=== PATIENT | male | born 1985 | race Caucasian/White ===

== ENCOUNTER 2017-11-25 20:34 | Inpatient (IN) | payer MEDICAID, OTHER ==
[~2017-11-25] VITALS: Ht 180.3 cm; Wt 87.8 kg
[2017-11-25] MEDS ORDERED: albuterol 2.5 MG/3 ML nebule CONTNEB PRN (21:10)
[2017-11-25 21:31] LABS: BASOPHILS % (AUTO) 0 % (0-1); EOSINOPHILS % (AUTO) 0.1 % (0-6); HEMATOCRIT 51.8 % (42.0-52.0); LYMPHOCYTES # (AUTO) 1.2 X10'3 (1.1-4.8); LYMPHOCYTES % (AUTO) 4.3 % (21-51); MEAN CORPUSCULAR HEMOGLOBIN 30.1 PG (27.0-31.0); MEAN CORPUSCULAR HGB CONC 34.8 % (33.0-36.5); MEAN CORPUSCULAR VOLUME 86.6 FL (78-98); MEAN PLATELET VOLUME 7.3 FL (7.4-10.4); MONOCYTES % (AUTO) 3.5 % (2-12); NEUTROPHILS # (AUTO) 25.5 X10'3 (1.8-7.7); NEUTROPHILS % (AUTO) 92.1 % (42-75); PLATELET COUNT 314 X10'3 (140-440); RED BLOOD COUNT 5.99 X10'6 (4.70-6.10); RED CELL DISTRIBUTION WIDTH 13.3 % (11.5-14.5)
[2017-11-25 21:34] LABS: WHITE BLOOD COUNT 27.7 X10'3 (4.5-11.0)
[2017-11-25] MEDS ORDERED: levoFLOXACIN-Levaquin 750MG/D5 150 ML IV STA (21:37)
[2017-11-25 21:45] LABS: PARTIAL THROMBOPLASTIN TIME 25 SECONDS (22-32); PROTHROMBIN TIME 10.1 SECONDS (9.0-12.0)
[2017-11-25 21:48] LABS: ALANINE AMINOTRANSFERASE 38 U/L (12-78); ALKALINE PHOSPHATASE 113 IU/L (46-116); ANION GAP 6 (8-16); ASPARTATE AMINO TRANSFERASE 30 U/L (10-37); BILIRUBIN,TOTAL 1.7 MG/DL (0.1-1.0); BLOOD UREA NITROGEN 16 MG/DL (7-18); BUN/CREATININE RATIO 12.8 (5.4-32.0); CALCIUM 9.2 MG/DL (8.5-10.1); CHLORIDE 101 MMOL/L (99-107); CREATININE 1.25 MG/DL (0.60-1.10); GLUCOSE 132 MG/DL (70-104); POTASSIUM 4.1 MMOL/L (3.5-5.1); SODIUM 135 MMOL/L (135-145); TOTAL CARBON DIOXIDE 28.2 MMOL/L (24-32); eGFR 67 ML/MIN
[2017-11-25 21:55] LABS: ABG HCO3 23.4 mmol/L (22.0-26.0); ABG OXYGEN SATURATION 92.8 % (95-98); ABG PCO2 (T) 37.3 mmHg (35.0-48.0); ABG PH (T) 7.413 (7.350-7.450); ABG PO2 (T) 63.6 mmHg (83-108); ALLEN'S TEST Positive; FCOHb 1.4 % (0.5-1.5); FLOW 2 L/min; FMetHb 0.3 % (0.3-1.12); FO2Hb 91.2 % (94-100); PATIENT TEMPERATURE 36.4; RESPIRATORY RATE (OBSERVED) 18 b/min; TOTAL HEMOGLOBIN 17.5 G/dl (14.0-18.0)
[2017-11-25 21:56] LABS: CREATINE KINASE 455 U/L (39-308); ETHANOL < 0.010 GM/DL (0.0-0.010); MAGNESIUM 2.1 MG/DL (1.5-2.4)
[2017-11-25 22:00] LABS: BANDS% (MANUAL) 4 % (0-10); LYMPHOCYTES % (MANUAL) 5 % (21-51); MONOCYTES % (MANUAL) 4 % (2-12); NEUTROPHILS % (MANUAL) 87 % (42-75); PLATELET ESTIMATE NORMAL; TOTAL CELLS COUNTED 100
[2017-11-25] MEDS ORDERED: acetaminophen 325mg tablet PO PRN (23:40)
[2017-11-25] MEDS ORDERED: ondansetron/PF 4mg/2ml inj IV PRN (23:40)
[2017-11-25] MEDS ORDERED: mag hydrox/Alum hydrox/simeth 30ml oral suspension PO PRN (23:40)
[2017-11-25] MEDS ORDERED: magnesium hydroxide 30ml (MOM) UD suspension PO PRN (23:40)
[2017-11-26 00:55] VITALS: BP 123/77
[2017-11-26 05:31] LABS: BASOPHILS % (AUTO) 0.1 % (0-1); EOSINOPHILS # (AUTO) 0.2 X10'3 (0-0.9); HEMATOCRIT 44.4 % (42.0-52.0); HEMOGLOBIN 15.5 g/dl (14.0-17.9); LYMPHOCYTES # (AUTO) 2.9 X10'3 (1.1-4.8); LYMPHOCYTES % (AUTO) 16.6 % (21-51); MEAN CORPUSCULAR HEMOGLOBIN 30.2 PG (27.0-31.0); MEAN CORPUSCULAR VOLUME 86.4 FL (78-98); MEAN PLATELET VOLUME 7.4 FL (7.4-10.4); MONOCYTES # (AUTO) 1.2 X10'3 (0-0.9); MONOCYTES % (AUTO) 6.6 % (2-12); NEUTROPHILS # (AUTO) 13.3 X10'3 (1.8-7.7); NEUTROPHILS % (AUTO) 75.7 % (42-75); PLATELET COUNT 280 X10'3 (140-440); RED BLOOD COUNT 5.14 X10'6 (4.70-6.10); WHITE BLOOD COUNT 17.6 X10'3 (4.5-11.0)
[2017-11-26 05:52] LABS: ALANINE AMINOTRANSFERASE 32 U/L (12-78); ALBUMIN 3.1 G/DL (3.4-5.0); ALBUMIN/GLOBULIN RATIO 0.9 (1.1-1.5); ALKALINE PHOSPHATASE 88 IU/L (46-116); ANION GAP 7 (8-16); ASPARTATE AMINO TRANSFERASE 21 U/L (10-37); BILIRUBIN,TOTAL 1.2 MG/DL (0.1-1.0); BLOOD UREA NITROGEN 17 MG/DL (7-18); BUN/CREATININE RATIO 15.2 (5.4-32.0); CALCIUM 8.3 MG/DL (8.5-10.1); CHLORIDE 102 MMOL/L (99-107); CREATININE 1.12 MG/DL (0.60-1.10); GLUCOSE 111 MG/DL (70-104); POTASSIUM 3.6 MMOL/L (3.5-5.1); SODIUM 136 MMOL/L (135-145); TOTAL CARBON DIOXIDE 26.8 MMOL/L (24-32); TOTAL PROTEIN 6.7 G/DL (6.4-8.2); eGFR 76 ML/MIN
[2017-11-26 07:09] VITALS: BP 112/64
[2017-11-26] MEDS ORDERED: levoFLOXACIN 250mg tablet PO SCH (08:00)
[2017-11-26] MEDS: levoFLOXACIN 250mg tablet PO SCH (11:49)
[2017-11-26 11:52] VITALS: BP 121/62
[2017-11-26] MEDS ORDERED: NO HOME MEDS (12:25)
[2017-11-26] MEDS: acetaminophen 325mg tablet PO PRN ×2 (13:17→19:39)
[2017-11-26 19:30] VITALS: BP 120/67
[2017-11-26] MEDS: lactobacillus rhamnosus 10,000 MMU CELLS/CAPSULE PO SCH (19:39)
[2017-11-26] MEDS: metroNIDAZOLE 500mg tablet PO SCH (19:39)
[2017-11-26] MEDS: albuterol 2.5 MG/3 ML nebule NEB SCH ×2 (20:00→23:24)
[2017-11-26] MEDS ORDERED: ketorolac trometh. 30mg/ml inj. IV PRN (21:50)
[2017-11-26] MEDS ORDERED: ibuprofen tablet 400 MG TABLET PO PRN ×2 (21:50→22:35)
[2017-11-26] MEDS: pantoprazole 40mg Tablet.DR PO SCH ×2 (23:09→23:10)
[2017-11-26 23:42] LABS: CLARITY,URINE CLEAR (Clear); COLOR,URINE YELLOW (Yellow); GLUCOSE, URINE NEGATIVE (Neg); KETONES,URINE NEGATIVE (Neg); LEUKOCYTE ESTERASE ,URINE TRACE (Neg); NITRITES, URINE NEGATIVE (Neg); OCCULT BLOOD,URINE NEGATIVE (Neg); PROTEIN,URINE NEGATIVE (Neg); UROBILINOGEN,URINE 0.2 E.U/dL (0.2-1.0)
[2017-11-26 23:50] LABS: URINE AMPHETAMINE SCREEN POSITIVE (Neg); URINE BARBITUATE SCREEN NEGATIVE (Neg); URINE BENZODIAZEPINES SCREEN NEGATIVE (Neg); URINE CANNABINOID SCREEN NEGATIVE (Neg); URINE COCAINE SCREEN NEGATIVE (Neg); URINE METHADONE SCREEN NEGATIVE (Neg); URINE OPIATE SCREEN POSITIVE (Neg); URINE PHENCYCLIDINE SCREEN NEGATIVE (Neg)
[2017-11-26 23:52] LABS: UA COLLECTION TYPE CLN CATCH MIDSTREAM
[2017-11-26 23:53] LABS: RBC,URINE NONE SEEN /HPF (0-2); WBC,URINE 20-30 /HPF (0-4)
[2017-11-26 23:54] LABS: BACTERIA,URINE NONE SEEN /HPF (Neg); MUCUS STRANDS MODERATE /LPF (Neg); SQUAMOUS EPITHELIAL CELL,UR NONE SEEN /LPF (FEW)
[2017-11-27] VITALS: BP 126/75
[2017-11-27] MEDS: albuterol 2.5 MG/3 ML nebule NEB SCH ×3 (03:00→11:30)
[2017-11-27 05:21] LABS: BASOPHILS % (AUTO) 0.3 % (0-1); EOSINOPHILS # (AUTO) 0.5 X10'3 (0-0.9); EOSINOPHILS % (AUTO) 3.4 % (0-6); HEMATOCRIT 42.9 % (42.0-52.0); HEMOGLOBIN 14.9 g/dl (14.0-17.9); LYMPHOCYTES # (AUTO) 2.9 X10'3 (1.1-4.8); LYMPHOCYTES % (AUTO) 20.8 % (21-51); MEAN CORPUSCULAR HEMOGLOBIN 30.1 PG (27.0-31.0); MEAN CORPUSCULAR HGB CONC 34.7 % (33.0-36.5); MEAN CORPUSCULAR VOLUME 86.6 FL (78-98); MEAN PLATELET VOLUME 7.2 FL (7.4-10.4); NEUTROPHILS # (AUTO) 9.5 X10'3 (1.8-7.7); NEUTROPHILS % (AUTO) 68.5 % (42-75); PLATELET COUNT 237 X10'3 (140-440); RED BLOOD COUNT 4.95 X10'6 (4.70-6.10); RED CELL DISTRIBUTION WIDTH 13.4 % (11.5-14.5); WHITE BLOOD COUNT 13.9 X10'3 (4.5-11.0)
[2017-11-27 05:36] LABS: ALANINE AMINOTRANSFERASE 20 U/L (12-78); ALBUMIN 2.9 G/DL (3.4-5.0); ALBUMIN/GLOBULIN RATIO 0.8 (1.1-1.5); ALKALINE PHOSPHATASE 81 IU/L (46-116); ANION GAP 6 (8-16); ASPARTATE AMINO TRANSFERASE 15 U/L (10-37); BILIRUBIN,TOTAL 0.7 MG/DL (0.1-1.0); BLOOD UREA NITROGEN 13 MG/DL (7-18); BUN/CREATININE RATIO 13.5 (5.4-32.0); CALCIUM 8.1 MG/DL (8.5-10.1); CHLORIDE 103 MMOL/L (99-107); CREATININE 0.96 MG/DL (0.60-1.10); GLUCOSE 99 MG/DL (70-104); POTASSIUM 3.7 MMOL/L (3.5-5.1); SODIUM 137 MMOL/L (135-145); TOTAL CARBON DIOXIDE 27.8 MMOL/L (24-32); TOTAL PROTEIN 6.5 G/DL (6.4-8.2); eGFR 90 ML/MIN
[2017-11-27 07:54] VITALS: BP 113/69
[2017-11-27] MEDS: lactobacillus rhamnosus 10,000 MMU CELLS/CAPSULE PO SCH (09:50)
[2017-11-27] MEDS: metroNIDAZOLE 500mg tablet PO SCH (09:50)
[2017-11-27] MEDS ORDERED: LEVO250T58 PO (10:42)
[2017-11-27] MEDS ORDERED: METR500T4 PO (10:42)
[2017-11-27] MEDS ORDERED: LEVO500T2 PO (10:49)
[2017-11-27 11:19] VITALS: BP 135/73
[2017-11-27] MEDS: levoFLOXACIN 250mg tablet PO SCH (11:38)
[2017-12-02] MEDS ORDERED: ibuprofen tablet 400 MG TABLET PO PRN (08:00)
== END 2017-11-27 13:14 | disposition home or self-care (01) | DRG 816 ==
LOC: ER 20:35 → ED HOLD 23:36 → SUR 3N 23:59
PROVIDERS: ADMIT Internal Medicine; ATTEND Internal Medicine
DX: T52.8X1A Toxic effect of other organic solvents, accidental (unintentional), initial encounter (principal); J96.01 Acute respiratory failure with hypoxia; J69.0 Pneumonitis due to inhalation of food and vomit; T75.1XXA Unspecified effects of drowning and nonfatal submersion, initial encounter; I10 Essential (primary) hypertension; R55 Syncope and collapse; W16.111A Fall into natural body of water striking water surface causing drowning and submersion, initial encounter; N39.0 Urinary tract infection, site not specified; Y93.89 Activity, other specified; Y92.828 Other wilderness area as the place of occurrence of the external cause; Y99.8 Other external cause status; Z71.51 Drug abuse counseling and surveillance of drug abuser
CPT/HCPCS: 36415; 36600; 71045; 71046; 80053; 80305; 80320; 81001; 82550; 82803; 83605; 83735; 83880; 84484; 85018; 85025; 85610; 85730; 87040; 87070; 87088; 93005; 94640; 94760; 99285; J1956; J3490

== ENCOUNTER 2020-05-09 15:46 | Emergency (ER) | payer MEDICAID, OTHER ==
[~2020-05-09] VITALS: Ht 180.3 cm; Wt 73.0 kg
[~2020-05-09 15:46] MED LIST: LIDOcaine 1% W/epiNEPHrine 1:100,000 20ml vial ONE; METR-159 PO
[2020-05-09] MEDS ORDERED: HYDROcodone/acetaminophen 5mg/325mg tablet PO ONE (16:50)
[2020-05-09] MEDS ORDERED: CefTRIAXone 250MG inj IM ONE (17:05)
[2020-05-09] MEDS ORDERED: CefTRIAXone 250MG IM Kit w/LIDOcaine IM ONE (17:10)
[2020-05-09] MEDS ORDERED: LIDOcaine 1% W/epiNEPHrine 1:200,000 10ml vial IJ ONE (17:30)
[2020-05-09] MEDS ORDERED: morphine 4 MG/ML inj SYRINge IV ONE ×3 (17:55→23:05)
[2020-05-09] MEDS ORDERED: ondansetron/PF 4mg/2ml inj IV ONE ×2 (17:55→23:05)
--- NOTE | 2020-05-09 19:42 | NUR ---
[facility] fax [phone]
--- NOTE | 2020-05-09 21:31 | NUR ---
REPORT CALLED TO CALLIE ANAYA AT ACCEPTING FACILITY. PLEASE CALL [phone] WITH ETA OF ARRIVAL.
[2020-05-09 23:37] VITALS: BP 137/88
== END 2020-05-09 23:19 | disposition short-term general hospital (02) ==
LOC: ER 15:46
DX: S61.411A Laceration without foreign body of right hand, initial encounter (principal); I10 Essential (primary) hypertension; Z20.828 Contact with and (suspected) exposure to other viral communicable diseases; Z79.899 Other long term (current) drug therapy; Z56.0 Unemployment, unspecified; W29.3XXA Contact with powered garden and outdoor hand tools and machinery, initial encounter; Y93.89 Activity, other specified; Y92.89 Other specified places as the place of occurrence of the external cause; Y99.0 Civilian activity done for income or pay
CPT/HCPCS: 29125; 73130; 87635; 96372; 96374; 96375; 96376; 99285; C9803; J0696; J2270; J2405

== ENCOUNTER 2023-10-21 20:28 | Emergency (ER) | payer MEDICAID ==
[~2023-10-21] VITALS: Ht 180.3 cm; Wt 98.3 kg
[2023-10-21 20:39] VITALS: TEMP 98
[2023-10-21 21:12] VITALS: PULSE 89; O2SAT 99
[2023-10-21] MEDS: HYDROmorphone/PF 0.2 MG/ML SYRINGE IV ONE (21:38)
[2023-10-21 21:46] VITALS: BP 140/89
[2023-10-21 22:00] VITALS: RESP 16
== END 2023-10-21 22:01 | disposition home or self-care (01) ==
LOC: ER 20:29
DX: S93.401A Sprain of unspecified ligament of right ankle, initial encounter (principal); I10 Essential (primary) hypertension; X50.1XXA Overexertion from prolonged static or awkward postures, initial encounter; Y93.89 Activity, other specified; Y92.89 Other specified places as the place of occurrence of the external cause; Y99.8 Other external cause status
CPT/HCPCS: 73610; 96374; 99284; J1170; A6449

== ENCOUNTER 2024-10-14 11:38 | Emergency (ER) | payer MEDICAID ==
[~2024-10-14] VITALS: Ht 180.3 cm; Wt 102.3 kg
[2024-10-14 11:45] VITALS: BP 144/98; PULSE 83; RESP 16; TEMP 98.6; O2SAT 98
--- NOTE | 2024-10-14 11:50 | Physician Documentation ---
History of Present Illness ~ Stated Complaint: BACK PAIN Primary Medical Doctor: NONE Medication Reconciliation Allergies: Coded Allergies: No Known Allergies (Unverified , 10/14/24) Past Medical History Past Medical History: Hypertension Past Surgical History: noncontributory Alcohol Use: None Drug Use: other Occupation: unemployed Progress Results/Orders Results/Orders Vital Signs 10/14/24 11:45 Temp 98.6 Pulse 83 Resp 16 B/P (MAP) 144/98 Pulse Ox 98 O2 Flow Rate 0 Departure Referrals: NO PRIMARY CARE PROVIDER (PCP) Additional Comment Medical Screen Exam 39 y/o male with c/o 7/10 back pain which increases 8-9 when he twists his body x a few days. Pain started after helping his sister move. Pain is mid to upper back. No radiating pain into extremities. No numbness, tingling, weakness, clumsiness. PE: Ambulating normally in exam room A/P: 1. Mid back pain, acute. Stable to wait for further exam in back. The medical screening exam accurately reflects work and decisions made by me.Jen MOSS 10/14/24 11:50 JEN BUSH Oct 14, 2024 11:50
== END 2024-10-14 16:43 | disposition left against medical advice (07) ==
LOC: ER 11:39
DX: M54.9 Dorsalgia, unspecified (principal); I10 Essential (primary) hypertension; Z53.21 Procedure and treatment not carried out due to patient leaving prior to being seen by health care provider

== ENCOUNTER 2024-11-25 13:59 | Outpatient (CLI) | payer MEDICAID ==
--- NOTE | 2024-11-25 18:13 | RADIOLOGY REPORT ---
PROCEDURE: MR MRI LUMBAR SPINE INDICATION: LOW BACK PAIN Exam Date: 11/25/2024 01:36 PM COMPARISON: None TECHNIQUE: MRI lumbar spine without intravenous contrast. FINDINGS: The lumbar alignment is intact. The vertebral body heights and marrow signal are within normal limit s. The visualized distal spinal cord and conus medullaris are within normal limits. The conus medul haylee appears to terminate within normal limits. The visualized retroperitoneal and paraspinal soft tissues are unremarkable. The following axial levels are detailed below: T12-L1: Unremarkable. L1-L2: Unremarkable. L2-L3: Unremarkable. L3-L4: There is a mild circumferential disc bulge. No significant central canal or neuroforaminal s tenosis. L4-L5: There is a moderate circumferential disc bulge complicated by facet arthropathy associated w ith mild to moderate bilateral neuroforaminal stenosis. No significant central canal stenosis. L5-S1: There is a mild circumferential disc bulge with a right paracentral component contributing to right lateral recess stenosis and [id number] right neural foraminal stenosis. No significant c entral canal stenosis. IMPRESSION: 1. Mild degenerative disease lower lumbar levels with a right paracentral protrusion at L5-S1 contrib candelaria to right lateral recess stenosis. No significant central canal stenosis. Neural foraminal stenosi s as above. HS:Y
== END 2024-11-25 23:59 | disposition home or self-care (01) ==
LOC: MRI02 13:59
PROVIDERS: ATTEND Nurse Practitioner Family
DX: M51.17 Intervertebral disc disorders with radiculopathy, lumbosacral region (principal); M54.50 Low back pain, unspecified; M48.07 Spinal stenosis, lumbosacral region
CPT/HCPCS: 72148